=== PATIENT | male | born 1960 | race Caucasian/White ===

== ENCOUNTER 2017-10-19 12:58 | Outpatient (CLI) | payer OTHER ==
--- NOTE | 2017-10-20 09:05 | Ultrasound Report ---
DATE OF SERVICE: 10/19/2017 RIGHT UPPER QUADRANT ULTRASOUND: 10/19/2017 COMPARISON: None INDICATION: Hepatitis C. Abnormal liver enzymes. TECHNIQUE: Sonographic evaluation of the right upper quadrant. FINDINGS: Liver echogenicity is moderately to severely and diffusely increased. Hepatic contour appears normal without masses. Portal venous flow is directed toward the liver. There is no ascites. Hepatic length 16.4 cm. Two gallbladder polyps measure on the order of 3 mm. The gallbladder appears otherwise unremarkable. Common duct measures 2 mm. Right kidney is grossly unremarkable without hydronephrosis. IMPRESSION Moderate to severe hepatic steatosis. Small gallbladder polyps are noted. Followup is available. cc: HERNANDO ANDESRON TD: 10/19/2017 21:53 cc: KALYN SOSA
== END 2017-10-19 12:59 | disposition home or self-care (01) ==
LOC: DI 12:58
PROVIDERS: ATTEND Physician Assistant
DX: K76.0 Fatty (change of) liver, not elsewhere classified (principal); B19.20 Unspecified viral hepatitis C without hepatic coma
CPT/HCPCS: 76705

== ENCOUNTER 2018-03-19 08:00 | Outpatient (CLI) | payer OTHER ==
[2018-03-19 19:45] LABS: ALBUMIN 4.4 g/dL (3.2-5.5); ALKALINE PHOSPHATASE 42 IU/L (42-121); ALT ALANINE AMINOTRANSFERASE 24 IU/L (10-60); AST ASPARTATE AMINOTRANSFERASE 28 IU/L (10-42); BILIRUBIN,TOTAL 0.8 mg/dL (0.2-1.0); TOTAL PROTEIN 8.5 g/dL (6.7-8.2)
[2018-03-19 19:46] LABS: BILIRUBIN,DIRECT < 0.1 mg/dL (0.1-0.5)
== END 2018-03-19 08:01 | disposition home or self-care (01) ==
LOC: LAB.WCP 08:00
PROVIDERS: ATTEND Physician Assistant
DX: B19.20 Unspecified viral hepatitis C without hepatic coma (principal)
CPT/HCPCS: 36415; 80076

== ENCOUNTER 2018-10-02 11:32 | Outpatient (CLI) | payer OTHER ==
[2018-10-02 12:09] LABS: ALBUMIN 4.2 g/dL (3.2-5.5); BILIRUBIN,DIRECT 0.1 mg/dL (0.1-0.5); BILIRUBIN,TOTAL 1.1 mg/dL (0.2-1.0); TOTAL PROTEIN 8.4 g/dL (6.7-8.2)
== END 2018-10-02 11:33 | disposition home or self-care (01) ==
LOC: LAB 11:32
PROVIDERS: ATTEND Physician Assistant
DX: R74.8 Abnormal levels of other serum enzymes (principal); B19.20 Unspecified viral hepatitis C without hepatic coma
CPT/HCPCS: 36415; 80076; 87522